=== PATIENT | female | born 1995 ===

== ENCOUNTER 2017-08-02 21:32 | Emergency (ER) | payer SELFPAY ==
[2017-08-02 21:47] VITALS: RESP 20
[2017-08-02] MEDS ORDERED: Naproxen 550 mg Tab PO STA (22:09)
--- NOTE | 2017-08-02 22:41 | C.PDOC ---
History Of Present Illness Patient is a 22 y/o female who presents to the ED with a complaint of left knee pain associated with swelling for the last 2 days. Patient reports similar episode occurred last year with the right knee, but resolved spontaneously. Patient works as a manicurist and denies trauma, fall, injury, numbness, weakness, or rash. Patient has no other physical complaints at this time. Time Seen by Provider: 08/02/17 21:52 Chief Complaint (Nursing): Lower Extremity Problem/Injury History Per: Patient History/Exam Limitations: no limitations Onset/Duration Of Symptoms: Days (2 days) Current Symptoms Are (Timing): Still Present Recent travel outside of the [place]: No Past Medical History Reviewed: Historical Data, Nursing Documentation, Vital Signs Vital Signs: Last Vital Signs Temp 98 F 08/02/17 23:22 Pulse 76 08/02/17 23:22 Resp 20 08/02/17 23:22 BP 128/72 08/02/17 23:22 Pulse Ox 98 08/02/17 23:22 - Medical History PMH: No Chronic Diseases Surgical History: No Surg Hx Family History: States: No Known Family Hx - Social History Hx Tobacco Use: No Hx Alcohol Use: Yes Hx Substance Use: No Review Of Systems Musculoskeletal: Positive for: Leg Pain (left knee pain and swelling) Skin: Negative for: Rash Neurological: Negative for: Weakness, Numbness Physical Exam - Physical Exam Appears: Well, Non-toxic, No Acute Distress Skin: Normal Color, Warm, Dry, No Rash Head: Atraumatic, Normacephalic Eye(s): bilateral: Normal Inspection Oral Mucosa: Moist Extremity: Tenderness (positive to left knee ), Capillary Refill (<2 sec), Other (mild effusion to superior aspect of anterior left knee. Limited ROM secondary to pain, but able to extend to 180 and flex to 120) Pulses: Left Dorsalis Pedis: Normal, Right Dorsalis Pedis: Normal Neurological/Psych: Oriented x3, Normal Speech, Normal Cognition, Normal Motor, Normal Sensation Gait: Steady ED Course And Treatment O2 Sat by Pulse Oximetry: 100 (room air) Pulse Ox Interpretation: Normal - Other Rad left knee X-Ray: Interpreted by Me, Viewed By Me Interpretation: negative fracture; positive effusion. Progress Note: Left knee XR ordered. Anaprox adminsitered. Disposition - Disposition Referrals: [facility] [Outside] [facility] [place] [Outside] Disposition: HOME/ ROUTINE Disposition Time: 22:41 Condition: GOOD Additional Instructions: Follow up with the medical doctor within 1-2 days without fail. return if worsened. Prescriptions: Acetaminophen [Tylenol] 325 mg PO Q6 PRN #30 tab PRN Reason: Pain, Mild (1-3) Ibuprofen [Motrin] 600 mg PO TID #21 tab predniSONE [Prednisone] 20 mg PO BID #10 tab Instructions: Gout (ED) Forms: Gen Discharge Inst Thai, Work Excuse Print Language: SYRIAC - Clinical Impression Clinical Impression: Knee pain, Gout - Scribe Statement The provider has reviewed the documentation as recorded by the Scribe Ani Simpson All medical record entries made by the Scribe were at my direction and personally dictated by me. I have reviewed the chart and agree that the record accurately reflects my personal performance of the history, physical exam, medical decision making, and the department course for this patient. I have also personally directed, reviewed, and agree with the discharge instructions and disposition.
[2017-08-02] MEDS ORDERED: Naproxen 550 mg Tab PO ONE (22:44)
[2017-08-02 23:25] VITALS: BP 128/72; PULSE 76; TEMP 98
[2017-08-03 04:32] VITALS: O2SAT 100
--- NOTE | 2017-08-03 08:37 | RAD ---
PROCEDURE: Left Knee Radiographs. HISTORY: Pain. COMPARISON: None. FINDINGS: BONES: Normal. No fracture. JOINTS: Normal. No osteoarthritis. JOINT EFFUSION: Small possible OTHER FINDINGS: None. IMPRESSION: Small effusion possible. Otherwise normal
== END 2017-08-02 23:22 | disposition home or self-care (01) ==
LOC: C.ER 21:32
DX: M25.562 Pain in left knee (principal); M10.9 Gout, unspecified